=== PATIENT | female | born 1970 | race African-American/Black ===

== ENCOUNTER 2024-06-16 01:38 | Emergency (ER) | payer OTHER, MEDICAID ==
[~2024-06-16] VITALS: Ht 157.5 cm; Wt 73.0 kg
[2024-06-16 01:55] VITALS: O2SAT 99
[2024-06-16] MEDS: ACETAMINOPHEN 325MG TABLET PO ONE (03:05)
[2024-06-16 05:07] VITALS: BP 118/70; PULSE 82; RESP 16; TEMP 36.72516; O2SAT 99
== END 2024-06-16 05:09 | disposition home or self-care (01) ==
LOC: ER 01:38
DX: S00.33XA Contusion of nose, initial encounter (principal); F03.90 Unspecified dementia, unspecified severity, without behavioral disturbance, psychotic disturbance, mood disturbance, and anxiety; W10.9XXA Fall (on) (from) unspecified stairs and steps, initial encounter; Y93.89 Activity, other specified; Y92.89 Other specified places as the place of occurrence of the external cause; Y99.8 Other external cause status
CPT/HCPCS: 70486; 99284

== ENCOUNTER 2024-11-23 16:34 | Emergency (ER) | payer OTHER, MEDICAID ==
[~2024-11-23] VITALS: Ht 157.5 cm; Wt 72.0 kg
[2024-11-23 16:47] VITALS: O2SAT 100
[2024-11-23 18:02] LABS: BASOPHILS % 0.2 % (0.0-2.0); EOSINOPHILS % 0.1 % (0.0-5.0); HEMATOCRIT. 39.5 % (36.0-48.0); HEMOGLOBIN. 12.7 g/dL (12.0-16.0); LYMPHOCYTES % 34.6 % (20.0-50.0); MEAN CORPUSCULAR HEMOGLOBIN 25.9 pg (28.0-32.0); MEAN CORPUSCULAR HGB CONC 32.1 g/dL (31.0-37.0); MEAN CORPUSCULAR VOLUME 80.6 fL (81.0-99.0); MEAN PLATELET VOLUME 9.8 fl (7.4-10.4); MONOCYTES % 7.5 % (2.0-8.0); NEUTROPHILS % 57.6 % (40.0-76.0); PLATELET 209 x1000/uL (130-400); RED BLOOD CELL COUNT 4.91 mill/uL (4.2-5.4); RED CELL DISTRIBUTION WIDTH 17.6 % (11.6-14.6)
[2024-11-23 18:09] LABS: PROTHROMBIN TIME 10.9 sec (9.6-11.0)
[2024-11-23 18:16] LABS: AMMONIA < 17 uMol/L (<32)
[2024-11-23 18:20] LABS: THYROID STIMULATING HORMONE 2.95 uIU/mL (0.55-4.78)
[2024-11-23 18:34] LABS: CHLORIDE 108 mEq/L (98-107); POTASSIUM 4.7 mEq/L (3.5-5.1); SODIUM 144 mEq/L (136-145)
[2024-11-23 18:35] LABS: CALCIUM 8.7 mg/dL (8.7-10.4); CARBON DIOXIDE 25 mEq/L (21-32)
[2024-11-23 18:40] LABS: CREATININE 0.7 mg/dL (0.6-1.0); GLUCOSE 96 mg/dL (70-105)
[2024-11-23 18:41] LABS: ETHANOL BLOOD < 10 mg/dL (<10); TROPONIN I HIGH SENSITIVITY < 4 ng/L (3.0-34); UREA NITROGEN BLOOD 17 mg/dL (9-23)
[2024-11-23 18:42] LABS: ACETAMINOPHEN < 2 ug/mL (10-30); ALANINE AMINOTRANSFERASE 16 IU/L (10-49); ALBUMIN 3.9 g/dL (3.2-4.8); ASPARTATE AMINOTRANSFERASE 37 IU/L (<34); BILIRUBIN DIRECT < 0.1 mg/dL (<=3.0); CREATINE KINASE 784 IU/L (34-145)
[2024-11-23 18:43] LABS: BILIRUBIN TOTAL 0.2 mg/dL (0.1-1.0); PROTEIN TOTAL 6.6 g/dL (6.0-8.3)
[2024-11-23 22:24] VITALS: BP 111/56; PULSE 73; RESP 15; TEMP 36.7; O2SAT 98
== END 2024-11-23 21:59 | disposition short-term general hospital (02) ==
LOC: ER 16:42 → EDBEDREQ 17:35 → ER 21:59
DX: G30.9 Alzheimer's disease, unspecified (principal); F02.C0 Dementia in other diseases classified elsewhere, severe, without behavioral disturbance, psychotic disturbance, mood disturbance, and anxiety; R62.7 Adult failure to thrive; Z55.6 Problems related to health literacy; R41.82 Altered mental status, unspecified; R53.1 Weakness; R07.9 Chest pain, unspecified; Z79.899 Other long term (current) drug therapy
CPT/HCPCS: 36415; 71045; 80048; 80076; 80307; 80320; 80329; 82140; 82550; 83605; 83880; 84443; 84484; 85025; 86850; 86900; 93005; 99285; G0480